=== PATIENT | male | born 1995 | race Caucasian/White ===

== ENCOUNTER 2018-10-19 13:15 | Outpatient (CLI) | payer OTHER ==
[2018-10-19] MEDS ORDERED: GADOBUTROL 10 MMOL/10 ML VIAL ONE (13:47)
[2018-10-19] MEDS ORDERED: GADOPENTETATE DIMEGLUMINE 5 ML VIAL IVP ONE (13:48)
[2018-10-19] MEDS ORDERED: BUFFERED LIDOCAINE 10 ML SYRINGE ONE (13:48)
[2018-10-19] MEDS ORDERED: IOTHALAMATE MEGLUMINE 50 ML VIAL ONE (13:48)
--- NOTE | 2018-10-19 16:26 | XRAY Report ---
Reason: OTHER INSTABILITY LT ANKLE Procedure Date: 10/19/2018 Accession Number: [id number] / [id number] Procedure: FL - Arthrogram Needle Placement CPT Code: FULL RESULT: EXAM: LEFT ANKLE Arthrographic Injection with Fluoroscopic Guidance EXAM DATE: 10/19/2018 01:40 PM. CLINICAL HISTORY: OTHER INSTABILITY LEFT ANKLE. COMPARISON: None. TECHNIQUE: The risks, benefits, and alternatives of the procedure were discussed with the patient. All questions were answered. Written and verbal consent were obtained. The dorsalis pedis artery and anterior extensor tendons were localized by palpation and marked on the skin. The anterior aspect of the lateral tibial-talar joint was marked under fluoroscopy and prepped and draped in a sterile manner. Local anesthesia was performed with 2 cc of 1% lidocaine. A 25-gauge needle was then inserted into the lateral tibial-talar joint. 4 mL of a solution containing 25% 1% lidocaine, 25% iodinated contrast, and a 1:200 dilution of gadolinium contrast in sterile saline was then injected. The needle was removed without immediate complication. Other: None. Fluoroscopy Time: 1 minute 33 seconds. Number of Images: 1. FINDINGS: Bones and joints: No appreciable fracture or subluxation. Injection: Fluoroscopic images demonstrate needle placement and contrast freely distributing throughout the ankle joint. No contrast extravasation outside of the ankle joint. IMPRESSION: Successful fluoroscopically guided arthrographic injection of the left ankle. Patient was then discharged to have MRI performed. MARCELO
--- NOTE | 2018-10-20 15:33 | MRI Report ---
Reason: OTHER INSTABILITY LT ANKLE Procedure Date: 10/19/2018 Accession Number: [id number] / [id number] Procedure: MRI - Arthrogram Ankle LT CPT Code: FULL RESULT: EXAM: LEFT ANKLE MRI ARTHROGRAM WITH CONTRAST. EXAM DATE: 10/19/2018 04:35 PM. CLINICAL HISTORY: Left ankle instability. COMPARISON: ARTHROGRAM 10/19/2018 1:40 PM. TECHNIQUE: Multiplanar, multisequence T1-weighted and fluid-sensitive sequences of the ankle after an arthrographic injection of dilute gadolinium, dictated under a separate exam. Other: Exam limited by patient motivation artifact and positioning. FINDINGS: Bones and articular surfaces: There is adequate contrast material within the ankle joint. No talar dome osteochondral lesion identified. No intra-articular loose body identified. No fracture identified. Visualized marrow signal within normal limits. Musculotendinous structures: The Achilles tendon and plantar fascia appear intact. Visualized anterior, posterior and posterolateral ankle tendons grossly intact. Ligaments: Some thickening of the anterior talofibular ligament may reflect scarring from previous injury. Calcaneofibular ligament is not well visualized. Components of deltoid ligament grossly intact. Anterior and posterior distal tibiofibular ligaments intact. IMPRESSION: 1. Exam limited by patient motion and positioning. 2. No osteochondral lesion or loose body identified. 3. Possible sprain and/or scarring of the anterior talofibular ligament. RADIA
== END 2018-10-19 13:16 | disposition home or self-care (01) ==
LOC: DI 13:15
PROVIDERS: ATTEND Physician Assistant
DX: M25.372 Other instability, left ankle (principal)
CPT/HCPCS: 27648; 73722; 77002; Q9961

== ENCOUNTER 2022-03-14 10:37 | Outpatient (CLI) | payer OTHER ==
[2022-03-14 11:30] VITALS: BP 124/78
--- NOTE | 2022-03-14 11:30 | SLEEP CARE CONSULTATION ---
Information from patient questionnaire entered by Ronan Rosenthal. I have reviewed and concur with the information entered by Ronan Rosenthal. This document represents the service I personally performed and the decisions made by me, Micaela Young ARNP. History of Present Illness Service Date and Time: 03/14/2022 1037 Reason for Visit: New patient Chief Complaint: reports: Insomnia, Unrefreshed sleep, Excessive daytime sleepiness, Observed pauses in breathing, Fatigue, Frequent awakenings at night Date of Onset: 3-4 years, worse in last 6 months Usual bedtime: 9-930PM Time it takes to fall asleep: 10-90MIN Snores at night: Yes (occasionally) Observed to quit breathing while asleep: Yes Sleeps alone due to snoring: No Number of times waking at night: 3-8 Reasons for waking at night: reports: Gasping for air, Other (UNKNOWN REASONS). denies: Choking, Snoring Toss, Turn, or Twitch while sleeping: Yes Recalls having dreams: Yes Usually gets out of bed at: 5AM; weekends 8-9 AM Feels refreshed in the morning: No Morning headache: Yes (1-2 times a week; RESOLVES 1-3 HR AFTER WAKING) Sleepy or fatigued during the day: Yes Ever fallen asleep while driving: No Takes day naps: No (will occasionally take a nap) Dreams during day naps: Yes Prior sleep studies: No Additional HPI information: I had the pleasure of seeing LANA DO today regarding the possibility of him having a sleep disorder. His current complaints are excessive daytime sleepiness, fatigue, frequent night awakenings, insomnia, observed pauses in breathing and unrefreshed sleep. He states he has been struggling with sleep issues for 3-4 years but in last several months things have worsened. He has woke up gasping for air. He states he is very restless at night and once jolted awake and grasped hands for seconds until he realized what was going on. He does not remember dreaming that night. He states he talks in his sleep sometimes. He has had some sleep paralysis in last 6 months. He can fall asleep quickly if very tired but other times he is just thinking through stuff happening but not usually stress or anxiety related. 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 Patient is Single and lives in . Have you smoked in the past 12 months: No Alcohol use: Yes Alcohol amount and frequency: 1-4 DRINKS 1 TIME A MONTH Caffeine use: Yes Caffeine amount and frequency: 1-2 CUPS DAILY Family History Family history of sleep disordered breathing: Yes Family Hx Sleep Apnea: Mother: Snoring, Sleep apnea - Treated, Sibling: Snoring, Sleep apnea - Treated Allergies and Home Medications Known drug allergies: No Drug allergies reviewed: Yes Home medication list reviewed: Yes (no daily medications) Review of Systems Weight gain over past 5 years: varies betw 215 to 240, now on high end Cardiovascular: denies: high blood pressure Gastrointestinal: denies: heartburn Neurological: denies: headaches Psychiatric: denies: anxiety, depression Ear/Nose/Throat: reports: nasal congestion, wisdom teeth removed. denies: tonsillectomy Endocrine: denies: thyroid disease Immunologic: denies: allergies to food or environment Physical Exam Vital signs obtained and entered by: RONAN [place] Blood Pressure: 124/78 (LEFT ARM) Cuff size: regular Heart Rate: 86 O2 Saturation: 97 Height: 6 ft 1 in Weight: 249 lb Body Mass Index: 32.8 BMI Classification: Obese Neck circumference: 17.75 Mouth and throat: narrow oropharynx Soft palate: long Hard palate: normal Uvula: normal Uvula visualization: 50% Mallampati Class II Tongue: enlarged in size with teeth quesada on lateral edges Tonsils: small Neck: normal w/o lymphadenopathy or thyromegaly Heart: regular rate and rhythm Lungs: clear bilaterally Impression and Plan 1. Suspected Obstructive Sleep Apnea-Hypopnea Syndrome, as suggested by a history of loud and irregular snoring, observed cessation of breath while asleep, gasping or choking in sleep, morning headache, frequent awakening during the night, unrefreshed sleep, cognitive impairment, and excessive daytime sleepiness. Narrow oropharynx and obesity are common predisposing factors for obstructive sleep apnea-hypopnea syndrome. I recommend proceeding to polysomnography to confirm the diagnosis and to assess severity. If the patient has significant sleep disordered breathing, a manual CPAP titration study will also be performed to find the optimal treatment pressure. I informed the patient of what the sleep studies involve and after some discussion, obtained agreement to proceed. The pathophysiology of obstructive sleep apnea-hypopnea syndrome was discussed with the patient and health risks of cardiovascular and cerebrovascular disease if not treated. Risks of drowsy driving discussed in detail and patient advised to avoid long distance driving and to pulling unit floorhand at the first sign of drowsiness. Patient agreed to plan. * Schedule polysomnography * Avoid long distance driving or driving when feeling sleepy. * Avoid alcohol, sedative and muscle relaxant around bedtime. * Attempt to lose weight. * Review instructions provided by trained office staff on how to prepare for the sleep study. * Return for follow-up after sleep study completed. Counseling Topics: Weight loss health impact Visit Type: In Office Time Spent with Patient (minutes): 30 Provider Statement: I spent 100% of the Face to Face Visit with the patient with greater than 50% spent counseling the patient and coordination of care.
== END 2022-03-14 10:38 | disposition home or self-care (01) ==
LOC: SC 10:37
PROVIDERS: ATTEND Nurse Practitioner Family
DX: R06.83 Snoring (principal); R06.81 Apnea, not elsewhere classified; G47.8 Other sleep disorders; R51.9 Headache, unspecified; R41.89 Other symptoms and signs involving cognitive functions and awareness; G47.10 Hypersomnia, unspecified; E66.9 Obesity, unspecified; Z68.32 Body mass index [BMI] 32.0-32.9, adult
CPT/HCPCS: 99203; 99212

== ENCOUNTER 2022-04-14 20:34 | Outpatient (CLI) | payer OTHER | END 2022-04-14 20:35 | disposition home or self-care (01) | LOC: SC 20:34 | PROVIDERS: ATTEND Nurse Practitioner Family | DX: I49.1 Atrial premature depolarization (principal); I49.3 Ventricular premature depolarization; I47.1 Supraventricular tachycardia; R06.83 Snoring | CPT/HCPCS: 95810 ==

== ENCOUNTER 2022-04-23 14:53 | Outpatient (CLI) | payer OTHER ==
--- NOTE | 2022-04-23 11:53 | SLEEP CARE CONSULTATION ---
Information from patient questionnaire entered by Zoey Rosenthal. I have reviewed and concur with the information entered by Zoey Rosenthal. This document represents the service I personally performed and the decisions made by , Micaela Young ARNP. History of Present Illness Service Date and Time: 04/23/2022 1140 Initial [place] Sleepiness Scale score: 4 (03/14/22) Current [place] Sleepiness Scale score: 6 (04/23/22) Additional HPI information: LANA DO returns via video telehealth visit for follow up and results of the recently performed polysomnography. The patient was informed of the following findings: No significant sleep disordered breathing with an average AHI of 4.8 and hugh oxygen saturation of 83%. Patient supine AHI was 10.3. He was noted to have cardiac arrhythmia. I explained the pathophysiology behind obstructive sleep apnea. Patient does not have sleep apnea and was advised how weight gain could increase the risk of developing sleep apnea in the future. I strongly encouraged the patient to lose weight. Patient does not have significant sleep disordered breathing but has elevated AHI in supine position so advised positional therapy. Methods to achieve positional management therapy were discussed; such as, positioning with pillows, wearing a T-shirt with tennis balls sewn into the back, Rematee shirt, Zzomba belt and Slumberbump belt. Patient has light snoring. Snoring can be reduced by weight loss. Weight loss is best achieved with diet consult. Patient instructed to contact PCP for referral. Snoring can also be treated with an oral appliance from a dentist. Advised to check insurance coverage. In addition, an ENT evaluation can be do to see if other treatment is indicated. Patient counseled not drink alcohol less than 4 hours before bedtime as it can increase snoring and apnea. Patient was cautioned about risks of drowsy driving until sleepiness symptoms resolve. Patient denies drowsy driving. Sleep Study - Results Type of Sleep Study: Polysomnography (COMPLETED 04/14/22) Prior sleep studies: No Polysomnography/Home Sleep Study results: IMPRESSION: The quality of the study is good. The patient had normal sleep efficiency. The sleep architecture was relatively normal considering the first-night effect. Respiratory monitoring showed no significant sleep disordered breathing (AHI = 4.8) or hypoxia (hugh oxygen saturation of 83% and only 0.3% to the total sleep time was spent with oxygen saturation below 90%). The few respiratory events occurred only during supine sleep (supine AHI = 10.3; non-supine = 0.00). Snore was light in intensity. There was no significant periodic leg movement of sleep. Cardiac rhythm was sinus rhythm with frequent premature atrial and ventricular contractions, occasionally in bigeminy. There were also short runs of supraventricular tachycardia. No abnormal behavior (parasomnia) observed during the night. Allergies and Home Medications Drug allergies reviewed: Yes (NKDA) Home medication list reviewed: Yes (no changes) Review of Systems Review of systems same as previous: Yes (no changes) Physical Exam Vital signs obtained and entered by: VIA PHONE ZOEY [place] Height: 6 ft 1 in (PER PT) Weight: 245 lb (PER PT) Body Mass Index: 32.3 BMI Classification: Obese Impression and Plan 1. Cardiac arrhythmia. During patient sleep study was noted frequent premature atrial and ventricular contractions. There was also short runs of supraventricular tachycardia. I advised patient to follow up with primary provider for further evaluation and possible cardiac monitoring. He voiced understanding. 2. Snoring, mild, but no significant sleep disordered breathing. Patient has an elevated AHI in the supine position, patient advised to avoid sleeping supine to reduce apneas and agreed with plan. Patient advised that often weight loss will reduce snoring as well as apnea risk. An oral appliance can also be used for snoring. This would require a dental consultation. Patient cautioned not to use other online appliances as can cause bite issues. A list of accredited dentists in area and one local dentist who makes oral appliances is available in the office. Patient is advised to check if insurance will cover. An ENT consult can also be helpful to determine if any other treatment is an option. * Follow up with primary provider for cardiac monitoring * Avoid sleeping supine * Attempt to lose weight * Avoid alcohol consumption near bedtime * The patient is cautioned about driving until sleepiness is completely resolved. * Return as needed for follow up. Counseling Topics: Sleeping position, Weight loss health impact Visit Type: Telehealth Video Video Type: Doximity Patient Location: [facility] Location of Provider: Office Patient agrees and consents to this telehealth visit type: Yes Patient agrees to have their insurance billed: Yes Time Spent with Patient (minutes): 12 Provider Statement: I spent 100% of the Telehealth Video Call with the patient with greater than 50% spent counseling the patient and coordination of care.
== END 2022-04-23 14:54 | disposition home or self-care (01) ==
LOC: SC 14:53
PROVIDERS: ATTEND Nurse Practitioner Family
DX: I49.1 Atrial premature depolarization (principal); I49.3 Ventricular premature depolarization; R06.83 Snoring; E66.9 Obesity, unspecified; Z68.32 Body mass index [BMI] 32.0-32.9, adult